=== PATIENT | female | born 1980 | race Two or more races ===

== ENCOUNTER 2016-12-23 19:22 | Emergency (ER) | payer MEDICAID ==
[2016-12-23] MEDS ORDERED: Albuterol Nebulizer 2.5mg/3mL HHN STA (19:36)
[2016-12-23] MEDS ORDERED: Albuterol Nebulizer 2.5mg/3mL HHN ONE (19:40)
--- NOTE | 2016-12-23 19:41 | ED Physician Chart ---
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 there is no chest pain. she is coughing frequently but not prod of sputum. no fever. no uri sx otw. no rash. no leg pains or edema. no fam hx of cardia events. no radiating pain. not a smoker. no asthma hx. denies acute emotional upset. pt speaks sp but has good communication skills and son also has good sri [place]an and is willing to help occasionally pt is on her menses now...wnl in time/flow/duration Allergies:: Allergies Allergy/AdvReac Type Severity Reaction Status Date / Time No Known Allergies Allergy Verified 12/23/16 19:30 Vitals:: Vital Signs - 8 hr 12/23/16 19:25 Temp 98.5 F HR 95 RR 20 BP 121/68 O2 Sat % 98 Historian:: Patient, Family Member (son (speaks good [place]ri [place]an) and here also) Review of Systems - Review of Systems General/Constitutional: No fever, No chills, No weight loss, No weakness, No diaphoresis, No edema, No loss of appetite Skin: No skin lesions, No rash, No bruising Head: No headache, No light-headedness Eyes: No loss of vision, No pain, No diplopia ENT: No earache, No nasal drainage, No sore throat, No tinnitus Neck: No neck pain, No swelling, No thyromegaly, No stiffness, No mass noted Cardio Vascular: No chest pain, No palpitations, No PND, No orthopnea, No edema Pulmonary: SOB, Cough, No sputum, No wheezing GI: No nausea, No vomiting, No diarrhea, No pain, No melena, No hematochezia, No constipation, No hematemesis G/U: No dysuria, No frequency, No hematuria Musculoskeletal: No bone or joint pain, No back pain, No muscle pain Endocrine: No polyuria, No polydipsia Psychiatric: No prior psych history, No depression, No anxiety, No suicidal ideation Hematopoietic: No bruising, No lymphadenopathy Allergic/Immuno: No urticaria, No angioedema Neurological: No syncope, No focal symptoms, No weakness, No paresthesia, No headache, No seizure, No dizziness, No confusion, No vertigo Past Medical History - Past Medical History Past Medical History: No significant medical hx Family History: None (no hx of cad) Social History: Non Smoker Medication: Reviewed Family Medical History - Family Member Mother History Unknown: Yes Physical Exam - Physical Examination General/Constitutional: Awake, Well-developed, well-nourished, Alert, No distress, GCS 15, Non-toxic appearing, Ambulatory Head: Atraumatic Eyes: Lids, conjuctiva normal, PERRL, EOMI Skin: Nl inspection, No rash, No skin lesions, No ecchymosis, Well hydrated, No lymphadenopathy ENMT: External ears, nose nl, Nasal exam nl, Lips, teeth, gums nl Neck: Nontender, Full ROM w/o pain, No JVD, No nuchal rigidity, No bruit, No mass, No stridor Respiratory: Nl effort/Exclusion, Clear to Auscultation, No Wheeze/Rhonchi/Rales Other Respiratory comments:: naggingly frequent persistent dry cough. mild sob w sao2 99-100pct on ra. nontoxic. hrt sounds nrml b9. no leg edema nor radha sx. nontndr legs. calm overall demeanor. nad. Cardio Vascular: RRR, No murmur, gallop, rubs, NL S1 S2 GI: No tenderness/rebounding/guarding, No organomegaly, No hernia, Normal BS's, Nondistended, No mass/bruits, No McBurney tenderness : No CVA tenderness Extremities: No tenderness or effusion, Full ROM, normal strength in all extremities, No edema, Normal digits & nails Neuro/Psych: Alert/oriented, DTR's symmetric, Normal sensory exam, Normal motor strength, Judgement/insight normal, Mood normal, Normal gait, No focal deficits Misc: normal gait, Normal back, No paraspinal tenderness Labs/Radiology/EKG Results - Radiology Results Results: cxr nad/ wnl - EKG Interpretations EKG Time:: 19:45 Rate & Rhythm: nsr 72 Parker: 8 Intervals: nrml Comments:: nrml ecg. no ectopy ED Septic Shock - . Is Septic Shock (SBP<90, OR Lactate>4 mmol\L) present?: No - <6hrs of presentation: Vital Signs: Vital Signs - 8 hr 12/23/16 19:25 Temp 98.5 F HR 95 RR 20 BP 121/68 O2 Sat % 98 Reassessment (Disposition) - Reassessment Reassessment:: pt feels better after neb txs. ecg and cxr wnl. dw pt and family plan. rx albuterol mdi. pt to return if worse and see pmd in 1-2 d for rechk. sao2 100pct off work tmrw. Reassessment Condition:: Improved - Diagnosis Diagnosis:: s/p exposure to inhalational irritant with reactive airway disease - Aftercare/Follow up Instructions Aftercare/Follow-Up Instructions:: Counseled pt & family regarding lab results/ diagnosis & need follow up - Patient Disposition Discharge/Transfer:: Home Condition at Disposition:: Improved
[2016-12-23] MEDS ORDERED: Albuterol/Ipratropium Neb 3 ML AERS HHN ONE ×2 (20:26→20:33)
--- NOTE | 2016-12-24 11:09 | Diagnostic Imaging Report ---
Portable chest x-ray History: Cough Allowing for portable technique the heart size is normal. No focal pulmonary parenchymal processes. No hilar or mediastinal abnormalities. Impression: No acute abnormalities.
== END 2016-12-23 21:45 | disposition home or self-care (01) ==
LOC: ER 19:22
DX: J45.909 Unspecified asthma, uncomplicated (principal)
CPT/HCPCS: 71010-TC; 81025-TC; 93005; 94640; J7613; Z7502